=== PATIENT | male | born 1985 | race Two or more races ===

== ENCOUNTER 2020-09-11 00:04 | Emergency (ER) | payer SELFPAY ==
[~2020-09-11] VITALS: Ht 170.2 cm; Wt 69.9 kg
[2020-09-11] MEDS ORDERED: IBUPROFEN 600 MG TAB PO STA (00:10)
[2020-09-11] MEDS ORDERED: IBUPROFEN 600 MG TAB ONE (00:25)
== END 2020-09-11 01:33 | disposition home or self-care (01) ==
LOC: ER 00:16
DX: S62.314A Displaced fracture of base of fourth metacarpal bone, right hand, initial encounter for closed fracture (principal); W22.09XA Striking against other stationary object, initial encounter
CPT/HCPCS: 99284